=== PATIENT | male | born 1965 | race Caucasian/White ===

== ENCOUNTER → 2016-11-23 | Outpatient (CLI) | payer OTHER | LOC: SBRMNEURO 21:00 | PROVIDERS: ATTEND Psychiatry & Neurology Sleep Medicine | DX: G47.33 Obstructive sleep apnea (adult) (pediatric) (principal); G47.61 Periodic limb movement disorder ==

== ENCOUNTER → 2017-03-04 | Outpatient (CLI) | payer OTHER ==
[~2017-03-04] MED LIST: GADOBUTROL 10 ML VIAL IVP ONE
== END ==
LOC: FIMAGING 12:50
PROVIDERS: ATTEND Psychiatry & Neurology Neurology
DX: G35 Multiple sclerosis (principal); M47.892 Other spondylosis, cervical region
CPT/HCPCS: A9585

== ENCOUNTER 2017-08-18 21:10 | Emergency (ER) | payer OTHER ==
--- NOTE | 2017-08-18 21:33 | EDPHY ---
H & P Time Seen by Provider: 08/18/17 21:32 HPI/ROS: HPI: This is a 52-year-old male presents with Chief Complaint: alcohol detox Location: psych Quality: alcohol detox Duration: 8 years Signs and Symptoms: No fever, no suicidal ideation, no homicidal ideation, + anxiety, + nausea but no vomiting, + mild dull aching headache, Timing: Chronic Severity: Moderate-severe Context: Patient drinks approximately 12 shots of Tequila daily for the last 8 years presents with his and daughter asking for alcohol detox program and generalized medical workup prior for clearance. Last drink was 13 oz Tequila 2 hours prior to arrival in the ER. Patient reports that he was admitted earlier this year overnight and did not have alcohol withdrawal seizures. Patient reports that he even started drinking in the morning the last week. He is employed. A him in his for currently in counseling and trying to work on the relationship. He reports extreme anxiety but denies suicidal ideation/ homicidal ideation/hallucinations. He has a diagnosis of multiple sclerosis had been on Capsone for several years but has been off of it the last 2 years. Patient reports mild tactile disturbances with sweaty palms. Modifying Factors: None Comment: ROS: see HPI Constitutional: No fever, no chills, no weight loss Eyes: No blurred vision Respiratory: No shortness of breath, no cough Cardiovascular: No chest pain Gastrointestinal: + nausea, no vomiting, no diarrhea Genitourinary: No dysuria Extremities: No myalgias Neurologic: No weakness, no numbness Skin: No rashes Hematologic: No bruising, no bleeding MEDICAL/SURGICAL/SOCIAL HISTORY: Medical history: Multiple sclerosis Surgical history: Tibia plateau surgery Social history: . Employed CONSTITUTIONAL: Tidy, cooperative, polite adult white male, awake and alert, no obvious distress HEENT: Atraumatic and normocephalic, PERRL, EOMI. Tympanic membranes clear. Oropharynx clear, no exudate and moist pink mucosa. Airway patent. No lymphadenopathy. No meningismus. Cardiovascular: Normal S1/S2, tachycardia, regular rhythm, without murmur rub or gallop. PULMONARY/CHEST: Symmetrical and nontender. Clear to auscultation bilaterally. Good air movement. No accessory muscle usage. ABDOMEN: Soft, nondistended, nontender, no rebound, no guarding, no peritoneal signs, no masses or organomegaly. No CVAT. EXTREMITIES: 2/2 pulses, strength 5/5, no deformities, no clubbing, no cyanosis or edema. NEUROLOGICAL: no focal neuro deficits. GCS 15. SKIN: Warm and dry, no erythema. no rash. Good capillary refill. PSYCH: Poor eye contact, no flight of ideas, organized thought process, relatively good insight and judgment, no auditory and visual command hallucinations, no suicidal ideation with a plan, no homicidal ideation, no paranoia Source: Patient, Family () Exam Limitations: No limitations Constitutional: Initial Vital Signs Temperature (C) 36.9 C 08/18/17 21:30 Heart Rate 104 H 08/18/17 21:30 Respiratory Rate 18 08/18/17 21:30 Blood Pressure 132/93 H 08/18/17 21:30 O2 Sat (%) 91 L 08/18/17 21:30 O2 Delivery Mode Room Air O2 (L/minute) 2 Allergies/Adverse Reactions: Penicillins Allergy (Verified 08/18/17 21:36) sulfamethoxazole [From Bactrim] Allergy (Verified 08/18/17 21:36) trimethoprim [From Bactrim] Allergy (Verified 08/18/17 21:36) Home Medications: Medication Instructions Recorded NK [No Known Home Meds] 08/18/17 Medical Decision Making ED Course/Re-evaluation: Labs, UDS and oral medications given Given p.o. Librium 25 mg x1. Does not meet Detainer or M1 criteria. CIWA=1 Labs reviewed; medically clear UDS negative Ethanol 273 TLC consult; [facility] will intake patient first thing in the morning. contracts for safety and will drive patient to [facility]. This patient was seen under the supervision of my secondary supervising physician. I evaluated care for this patient independently. Discussed this patient with Dr. Guerra who did not see the patient. Patient's presentation, labs/imaging, treatment and plan of care were discussed with secondary supervising physician. Differential Diagnosis: Differential diagnosis includes but is not limited to alcohol abuse, alcohol intoxication, anxiety, functional and situational depression. - Data Points Laboratory Results: Laboratory Results 08/18/17 22:44 08/18/17 22:44 08/18/17 08/18/17 08/18/17 22:44 22:44 22:06 WBC 7.62 10^3/uL 10^3/uL (3.80-9.50) RBC 4.61 10^6/uL 10^6/uL (4.40-6.38) Hgb 16.2 g/dL g/dL (13.7-17.5) Hct 44.0 % % (40.0-51.0) MCV 95.4 fL fL (81.5-99.8) MCH 35.1 pg H pg (27.9-34.1) MCHC 36.8 g/dL H g/dL (32.4-36.7) RDW 11.7 % % (11.5-15.2) Plt Count 162 10^3/uL 10^3/uL (150-400) MPV 8.3 fL L fL (8.7-11.7) Neut % (Auto) 35.4 % L % (39.3-74.2) Lymph % (Auto) 48.3 % H % (15.0-45.0) Tama % (Auto) 13.3 % H % (4.5-13.0) Eos % (Auto) 1.7 % % (0.6-7.6) Baso % (Auto) 0.9 % % (0.3-1.7) Nucleat RBC Rel Count 0.0 % % (0.0-0.2) Absolute Neuts (auto) 2.70 10^3/uL 10^3/uL (1.70-6.50) Absolute Lymphs (auto) 3.68 10^3/uL H 10^3/uL (1.00-3.00) Absolute Monos (auto) 1.01 10^3/uL H 10^3/uL (0.30-0.80) Absolute Eos (auto) 0.13 10^3/uL 10^3/uL (0.03-0.40) Absolute Basos (auto) 0.07 10^3/uL 10^3/uL (0.02-0.10) Absolute Nucleated RBC 0.00 10^3/uL 10^3/uL (0-0.01) Immature Gran % 0.4 % % (0.0-1.1) Immature Gran # 0.03 10^3/uL 10^3/uL (0.00-0.10) Sodium 147 mEq/L H mEq/L (134-144) Potassium 4.2 mEq/L mEq/L (3.5-5.2) Chloride 106 mEq/L mEq/L (97-110) Carbon Dioxide 23 mEq/l mEq/l (22-31) Anion Gap 18 mEq/L H mEq/L (8-16) BUN 6 mg/dL L mg/dL (7-23) Creatinine 0.7 mg/dL mg/dL (0.7-1.3) Estimated GFR > 60 Glucose 77 mg/dL mg/dL (70-100) Calcium 9.3 mg/dL mg/dL (8.5-10.4) Total Bilirubin 1.0 mg/dL mg/dL (0.1-1.4) Conjugated Bilirubin 0.4 mg/dL mg/dL (0.0-0.5) Unconjugated Bilirubin 0.6 mg/dL mg/dL (0.0-1.1) AST 158 IU/L H IU/L (17-59) ALT 180 IU/L H IU/L (21-72) Alkaline Phosphatase 73 IU/L IU/L (38-126) Total Protein 7.4 g/dL g/dL (6.3-8.2) Albumin 4.6 g/dL g/dL (3.5-5.0) Urine Opiates Screen NEGATIVE (NEGATIVE) Urine Barbiturates NEGATIVE (NEGATIVE) Ur Phencyclidine Scrn NEGATIVE (NEGATIVE) Ur Amphetamine Screen NEGATIVE (NEGATIVE) U Benzodiazepines Scrn NEGATIVE (NEGATIVE) Urine Cocaine Screen NEGATIVE (NEGATIVE) U Marijuana (THC) Screen NEGATIVE (NEGATIVE) Ethyl Alcohol 273 mg/dL H mg/dL (0-10) 08/18/17 22:06 WBC TNP RBC TNP Hgb TNP Hct TNP MCV TNP MCH TNP MCHC TNP RDW TNP Plt Count TNP MPV TNP Neut % (Auto) TNP Lymph % (Auto) TNP Tama % (Auto) TNP Eos % (Auto) TNP Baso % (Auto) TNP Nucleat RBC Rel Count TNP Absolute Neuts (auto) TNP Absolute Lymphs (auto) TNP Absolute Monos (auto) TNP Absolute Eos (auto) TNP Absolute Basos (auto) TNP Absolute Nucleated RBC TNP Immature Gran % TNP Immature Gran # TNP Sodium Potassium Chloride Carbon Dioxide Anion Gap BUN Creatinine Estimated GFR Glucose Calcium Total Bilirubin Conjugated Bilirubin Unconjugated Bilirubin AST ALT Alkaline Phosphatase Total Protein Albumin Urine Opiates Screen Urine Barbiturates Ur Phencyclidine Scrn Ur Amphetamine Screen U Benzodiazepines Scrn Urine Cocaine Screen U Marijuana (THC) Screen Ethyl Alcohol Medications Given: Discontinued Medications Chlordiazepoxide HCl (Librium) 25 mg PO EDNOW ONE Stop: 08/18/17 21:49 Last Admin: 08/18/17 21:55 Dose: 25 mg Sodium Chloride (Ns) 1,000 mls @ 0 mls/hr IV EDNOW ONE; Wide Open PRN Reason: Protocol Stop: 08/18/17 22:29 Last Admin: 08/18/17 22:33 Dose: Not Given Lorazepam (Ativan) 1 mg PO EDNOW ONE Stop: 08/18/17 21:49 Last Admin: 08/18/17 22:12 Dose: Not Given Departure - Departure Disposition: Other Psych, Not [place] Clinical Impression: Alcohol dependence syndrome Qualifiers: Substance use status: with intoxication Complication of substance-induced condition: uncomplicated Qualified Code(s): F10.220 - Alcohol dependence with intoxication, uncomplicated Condition: Fair Instructions: Alcohol Dependence (ED) Additional Instructions: Patient is medically clear for admission to [facility]. Referrals: Hood Pineda MD [Primary Care Provider] - As per Instructions
[2017-08-18] MEDS ORDERED: chlordiazePOXIDE 25 MG CAP PO ONE (21:48)
[2017-08-18] MEDS ORDERED: LORazepam 1 MG TAB PO ONE (21:48)
[2017-08-18] MEDS ORDERED: NS 1,000 ML IV ONE (22:28)
[2017-08-18 22:54] VITALS: O2SAT 93
[2017-08-18 23:09] LABS: PLATELET COUNT 162 10^3/uL (150-400)
[2017-08-18] MEDS ORDERED: CHLORDIAZEPOXIDE 25MG PREPK#6 BTL TAKEHOME ONE ×2 (23:26→23:28)
[2017-08-18 23:40] VITALS: BP 117/84; PULSE 79; RESP 16; TEMP 98.2
== END 2017-08-18 23:40 ==
DX: F10.220 Alcohol dependence with intoxication, uncomplicated (principal)
CPT/HCPCS: 80305; G0480

== ENCOUNTER → 2018-08-31 | Outpatient (CLI) | payer OTHER | LOC: FIMAGING 16:41 | PROVIDERS: ATTEND Psychiatry & Neurology Neurology | DX: G35 Multiple sclerosis (principal); R20.0 Anesthesia of skin | CPT/HCPCS: A9585 ==

== ENCOUNTER → 2019-02-07 | Outpatient (CLI) | payer OTHER | LOC: FIMAGING 18:41 ==